=== PATIENT | male | born 1950 | race Hispanic/Latino ===

== ENCOUNTER 2021-05-04 20:19 | Emergency (ER) | payer MEDICARE ==
[~2021-05-04] VITALS: Ht 165.1 cm; Wt 59.0 kg
== END 2021-05-04 21:20 | disposition left against medical advice (07) ==
LOC: EDH 21:04
DX: Z48.01 Encounter for change or removal of surgical wound dressing (principal); Z53.21 Procedure and treatment not carried out due to patient leaving prior to being seen by health care provider